=== PATIENT | female | born 1965 | race Caucasian/White ===

== ENCOUNTER 2020-07-18 22:01 | Emergency (ER) | payer OTHER ==
[2020-07-18] MEDS ORDERED: Aspirin Chewable 81 MG TAB ONE (22:53)
[2020-07-18 23:03] LABS: #Eosinphils 0.1 10x3/uL (0.0-0.5); #Monocytes 0.4 10x3/uL (0.0-1.1); #Neutrophils 3.9 10x3/uL (1.5-8.4); %Basophils 0.5 % (0.0-2.0); %Lymphocytes 26.5 % (18.0-47.0); %Monocytes 7.2 % (0.0-10.0); %Neutrophils 63.6 % (40.0-75.0); Hemoglobin 12.7 g/dL (12.0-15.5); Mean Corpuscular HGB CONC 33.1 g/dL (32.0-36.0); Mean Corpuscular Hemoglobin 29.5 pg (27.0-33.0); Mean Corpuscular Volume 89.1 fl (81.6-98.3); Mean Platelet Volume 10.2 fl (7.4-10.4); Platelet Count 252 10x3/uL (150-450); Red Blood Cell (RBC) Count 4.31 10x6/uL (3.90-5.03); White Blood Cell (WBC) Count 6.2 10x3/uL (3.5-10.5)
[2020-07-18 23:21] LABS: ALT (SGPT) 15 U/L (8-55); AST (SGOT) 18 U/L (5-34); Alkaline Phosphatase 62 U/L (40-110); Anion Gap 16 mmol/L (10-20); BUN (Urea Nitrogen) 13 mg/dL (9.8-20.1); Bilirubin, Total 0.2 mg/dL (0.2-1.2); Calc. Creatinine Clearance 0 mL/min (70-130); Calcium 9.2 mg/dL (7.8-10.44); Carbon Dioxide 23 mmol/L (22-29); Chloride 104 mmol/L (98-107); Globulin 3.2 g/dL (2.4-3.5); Glucose 160 mg/dL (70-105); Potassium 3.7 mmol/L (3.5-5.1); Protein, Total 7.2 g/dL (6.0-8.3); Sodium 139 mmol/L (136-145)
== END 2020-07-18 23:48 | disposition home or self-care (01) ==
LOC: CSHERS 22:01
DX: R07.89 Other chest pain (principal); E11.9 Type 2 diabetes mellitus without complications; K21.9 Gastro-esophageal reflux disease without esophagitis; E78.5 Hyperlipidemia, unspecified; I10 Essential (primary) hypertension; G20 Parkinson's disease; Z79.899 Other long term (current) drug therapy
CPT/HCPCS: 71045; 80053; 83880; 84484; 85025; 93005